=== PATIENT | female | born 1995 | race Caucasian/White ===

== ENCOUNTER 2016-04-11 22:09 | Outpatient (CLI) | payer MEDICAID ==
[~2016-04-11] VITALS: Ht 160 cm; Wt 87.5 kg
[2016-04-11 22:38] VITALS: Ht 160 cm; Wt 87.5 kg
[2016-04-11 22:39] VITALS: BP 116/61; PULSE 93; RESP 18
[2016-04-11] MEDS ORDERED: FERR325C PO (22:42)
[2016-04-11] MEDS ORDERED: PRENAT PO (22:42)
--- NOTE | 2016-04-11 23:41 | RADRPT ---
PROCEDURE: US OB biophysical profile. CLINICAL INDICATION: UCS TECHNIQUE: Multiple sonographic images of the pelvis were obtained. The images were reviewed on a PACS workstation. COMPARISON: No pertinent prior examinations were submitted for comparison. FINDINGS: There is a single viable intrauterine gestation. Cardiac activity is present with 141 beats per min [place]. There is a vertex presentation. The placenta is anterior. The placenta is grade II appearance. There is a normal amount of amniotic fluid with an AC = 8.2 cm. Biophysical profile: movement 2/2 tone 2/2. breathing 2/2 AC 2/2 Total 09/23 IMPRESSION: Normal biophysical profile. RPTAT: HIKT . .Elkin Owen MD, MD Date Time Electronically viewed and signed by .Elkin Owen MD, on 04/11/2016 23:41 .T/
--- NOTE | 2016-04-12 01:01 | TRIAGE ---
OB Triage Datetime Report Generated by CPN: 04/12/2016 01:00 Datetime: 04/12/2016 00:41 Stage of : OB Triage Monitor Mode: External Quality: Mild Pattern: Normal: <= 5 Contractions in 10 Minutes Resting Tone [place]: Relaxed Heart Rate FHR Baseline Rate: 130 Monitor Mode: External US Datetime: 04/12/2016 00:36 Membrane Status: Intact Datetime: 04/11/2016 23:35 Vaginal Exam Dilatation (cms): 0.0 Effacement (%): 0 Station: -3 Exam By: Marcelle BRIGHT Vaginal Bleeding: None Cervix, Consistency: Firm Cervix, Position: Posterior Presentation 'A': Cephalic Datetime: 04/11/2016 23:30 Stage of : OB Triage Datetime: 04/11/2016 23:26 Stage of : OB Triage Datetime: 04/11/2016 23:06 Stage of : OB Triage Datetime: 04/11/2016 22:29 Assessment Type: Triage Maternal Assessment Level of Consciousness: Fully Conscious DTR's/Clonus: DTRs 2+; No Clonus Headache: Denies Blurred Vision: No Respiratory Effort: Unlabored Breath Sounds, Left: Clear and Equal Breath Sounds, Right: Clear and Equal Nausea/Vomiting: Denies RUQ Epigastric Pain: Denies Lower Extremities Edema: None Degree: None Upper Extremities Edema: None Degree: None Facial Edema: None Fall Risk Assessment History of Falling: (0) No Secondary Diagnosis: (15) Yes (Annotations: ASTHMA) Ambulatory Aid: (0) Bedrest/Nurse Assist IV Therapy: (0) No Gait: (0) Normal/Bedrest/Immobile Mental Status: (0) Oriented to Own Ability Fall Score: 15 Fall Risk Score Definition: No Risk: No action required Datetime: 04/11/2016 22:23 Time of Arrival: 04/11/2016 22:07 EGA: 35.5 Arrived By: Ambulatory Arrived From: Home Chief Complaint: UCS X2 SINCE 1600 Movement: Present Contractions: Occasional Rupture of Membranes: Denies Vaginal Bleeding: None Vaginal Discharge: Denies Recent Sexual Intercouse: Denies Abdominal Trauma: Not Applicable Patient Complaints: Cramping; Back Pain Time Provider Notified: 04/11/2016 23:06 Provider Notified: FAZILAT Initial Plan: VS, EFM, PO HYDRATION, SVE, BPP Datetime: 04/11/2016 22:20 Stage of : OB Triage Monitor Mode: External Monitor Mode: External US Datetime: 02/08/2016 11:59 Labor Evaluation Frequency: 0 Monitor Mode: External Pattern: Normal: <= 5 Contractions in 10 Minutes Resting Tone [place]: Relaxed Heart Rate FHR Baseline Rate: 140 Monitor Mode: External US FHR Baseline Changes: No Baseline Change Variability: Moderate 6-25 bpm Accelerations: 15X15 Decelerations: None Category: Category I Pain Assessment Pain Scale: 0 Pain Presence: None/Denies Pain Type: N/A Pain Assessment Comments: PT REPORTS PAIN IS BETTER Datetime: 02/08/2016 10:54 Labor Evaluation Frequency: 0 Pattern: Normal: <= 5 Contractions in 10 Minutes Resting Tone [place]: Relaxed Heart Rate FHR Baseline Rate: 135 Monitor Mode: External US FHR Baseline Changes: No Baseline Change Variability: Moderate 6-25 bpm Accelerations: 15X15 Decelerations: None Category: Category I Pain Assessment Pain Scale: 2 Pain Presence: Intermittent Pain Type: Cramping Pain Location: Abdomen Pain Relief Measures: Comfort Measures Datetime: 02/08/2016 10:05 Assessment Type: Triage EGA: 26.5 Maternal Assessment Level of Consciousness: Fully Conscious DTR's/Clonus: DTRs 2+; No Clonus Headache: Denies Blurred Vision: No Respiratory Effort: Unlabored; Regular Rhythm Breath Sounds, Left: Clear and Equal Breath Sounds, Right: Clear and Equal Nausea/Vomiting: Denies RUQ Epigastric Pain: Denies Lower Extremities Edema: None Degree: None Upper Extremities Edema: None Degree: None Facial Edema: None Fall Risk Assessment History of Falling: (0) No Secondary Diagnosis: (0) No Ambulatory Aid: (0) Bedrest/Nurse Assist IV Therapy: (0) No Gait: (0) Normal/Bedrest/Immobile Mental Status: (0) Oriented to Own Ability Fall Score: 0 Fall Risk Score Definition: No Risk: No action required Datetime: 02/08/2016 10:04 Time of Arrival: 02/08/2016 09:50 Arrived By: Ambulatory Arrived From: Home Chief Complaint: PT PRESENTS TO TRIAGE COMPLAINING OF LOWER ABDOMINAL PAIN Movement: Present Contractions: Denies/Absent Rupture of Membranes: Denies Vaginal Bleeding: None Vaginal Discharge: Denies Recent Sexual Intercouse: Denies Abdominal Trauma: Not Applicable Patient Complaints: None Time Provider Notified: 02/08/2016 10:45 Provider Notified: [facility] Initial Plan: EFM/CVL/AC/EFW/UA Datetime: 02/08/2016 10:03 Pain Assessment Pain Scale: 2 Pain Presence: Intermittent Pain Type: Cramping Pain Location: Abdomen Pain Relief Measures: Comfort Measures
== END 2016-04-12 00:58 | disposition home or self-care (01) ==
LOC: OBT 22:09 → L-D 22:11 → OBT 04-12 00:58
PROVIDERS: ATTEND Obstetrics & Gynecology
DX: O62.9 Abnormality of forces of labor, unspecified (principal); Z3A.35 35 weeks gestation of pregnancy
CPT/HCPCS: 76818; Z7500; G0463

== ENCOUNTER 2016-04-24 12:20 | Outpatient (CLI) | payer SELFPAY ==
[~2016-04-24] VITALS: Ht 160 cm; Wt 82.3 kg
[~2016-04-24 12:20] MED LIST: FERR325C PO; PRENAT PO
[2016-04-24 12:34] VITALS: Ht 160 cm; Wt 82.3 kg
[2016-04-24 12:50] VITALS: BP 107/61; PULSE 107; RESP 18
--- NOTE | 2016-04-24 13:52 | RADRPT ---
PROCEDURE: OB ultrasound for biophysical profile CLINICAL INDICATION: Possible SROM. TECHNIQUE: Multiple sonographic images of the pelvis were obtained. Transabdominal view of the gr avid uterus are available for review. The images were reviewed on a PACS workstation. COMPARISON: 04/11/2016. FINDINGS: breathing movement = 2/2 tone = 2/2 motion = 2/2 Quantitative amniotic fluid volume = 2/2 AC = 6.6 cm Single live intrauterine with cardiac activity at 134 beats per minute. There is a anterior placenta without previa. IMPRESSION: 1. Single living intrauterine gestation in cephalic position. 2. Biophysical profile = 8/8. 3. AC = 6.6 cm. RPTAT: AACC Physician Zoraida Date Time Electronically viewed and signed by Physician Zoraida on 04/24/2016 13:52 /
--- NOTE | 2016-04-24 15:53 | TRIAGE ---
OB Triage Datetime Report Generated by CPN: 04/24/2016 15:53 Datetime: 04/24/2016 15:26 Labor Evaluation Frequency: occ Quality: Mild Pattern: Normal: <= 5 Contractions in 10 Minutes Resting Tone [place]: Relaxed Heart Rate FHR Baseline Rate: 125 FHR Baseline Changes: No Baseline Change Variability: Moderate 6-25 bpm Accelerations: 15X15 Decelerations: None Category: Category I Pain Presence: None/Denies Vaginal Exam Dilatation (cms): 0.0 Effacement (%): 50 Station: -2 Exam By: foroohar Vaginal Bleeding: None Cervix, Consistency: Moderate Cervix, Position: Posterior Presentation 'A': Cephalic Datetime: 04/24/2016 15:13 Labor Evaluation Frequency: occ Monitor Mode: External Quality: Mild Pattern: Normal: <= 5 Contractions in 10 Minutes Resting Tone [place]: Relaxed Heart Rate FHR Baseline Rate: 125 Monitor Mode: External US FHR Baseline Changes: No Baseline Change Variability: Moderate 6-25 bpm Accelerations: 15X15 Decelerations: None Category: Category I Datetime: 04/24/2016 14:45 Labor Evaluation Frequency: 2-8 Monitor Mode: External Duration (sec)2399: 40-70 Quality: Mild Pattern: Normal: <= 5 Contractions in 10 Minutes Resting Tone [place]: Relaxed Heart Rate FHR Baseline Rate: 135 Monitor Mode: External US FHR Baseline Changes: No Baseline Change Variability: Moderate 6-25 bpm Accelerations: 15X15 Decelerations: None Category: Category I Datetime: 04/24/2016 13:24 Labor Evaluation Frequency: irr Monitor Mode: External Duration (sec)2399: 30 Quality: Mild Pattern: Normal: <= 5 Contractions in 10 Minutes Resting Tone [place]: Relaxed Heart Rate FHR Baseline Rate: 130 Monitor Mode: External US FHR Baseline Changes: No Baseline Change Variability: Moderate 6-25 bpm Accelerations: 15X15 Decelerations: None Category: Category I Membrane Status: Intact Datetime: 04/24/2016 13:04 Stage of : OB Triage Station: -2 Exam By: eileen [facility] Vaginal Bleeding: None Cervix, Consistency: Soft Cervix, Position: Posterior Presentation 'A': Cephalic Datetime: 04/24/2016 12:51 Stage of : OB Triage Maternal Assessment Level of Consciousness: Fully Conscious DTR's/Clonus: DTRs 2+; No Clonus Headache: Denies Blurred Vision: No Respiratory Effort: Unlabored; Regular Rhythm; Equal Expansion Breath Sounds, Left: Clear and Equal Breath Sounds, Right: Clear and Equal Nausea/Vomiting: Denies RUQ Epigastric Pain: Denies Lower Extremities Edema: None Degree: None Upper Extremities Edema: None Degree: None Facial Edema: None Temperature Route: Axillary Fall Risk Assessment History of Falling: (0) No Secondary Diagnosis: (0) No Ambulatory Aid: (0) Bedrest/Nurse Assist IV Therapy: (0) No Gait: (0) Normal/Bedrest/Immobile Mental Status: (0) Oriented to Own Ability Fall Score: 0 Fall Risk Score Definition: No Risk: No action required Monitor Mode: External Heart Rate FHR Baseline Rate: 135 (Annotations: initial) Monitor Mode: External US Pain Assessment Pain Scale: 0 Pain Presence: None/Denies Datetime: 04/24/2016 12:38 Time of Arrival: 04/24/2016 12:38 EGA: 37.4 Arrived By: Ambulatory Arrived From: Home Chief Complaint: leaking of fluid, possible rom Movement: Present Contractions: Occasional Time Contractions Began: 04/24/2016 09:00 Contractions: 10 Rupture of Membranes: Unsure Vaginal Bleeding: None Vaginal Discharge: Denies Recent Sexual Intercouse: Denies Abdominal Trauma: Not Applicable Patient Complaints: Other Time Provider Notified: 04/24/2016 13:04 Provider Notified: Dr gold Initial Plan: efm/ bpp Datetime: 04/12/2016 00:52 Stage of : OB Triage Monitor Mode: External Quality: Mild Pattern: Normal: <= 5 Contractions in 10 Minutes Resting Tone [place]: Relaxed Heart Rate FHR Baseline Rate: 130 Monitor Mode: External US FHR Baseline Changes: No Baseline Change Variability: Moderate 6-25 bpm Accelerations: 15X15 Decelerations: None Category: Category I Pain Assessment Pain Scale: 0 Pain Presence: None/Denies Pain Type: N/A Datetime: 04/11/2016 22:29 Fall Score: 15 Fall Risk Score Definition: No Risk: No action required Datetime: 04/11/2016 22:23 EGA: 35.5 Datetime: 02/08/2016 10:05 EGA: 26.5 Fall Score: 0 Fall Risk Score Definition: No Risk: No action required
== END 2016-04-24 15:48 | disposition home or self-care (01) ==
LOC: OBT 12:20 → L-D 12:20 → OBT 15:48
PROVIDERS: ATTEND Obstetrics & Gynecology
DX: O47.1 False labor at or after 37 completed weeks of gestation (principal); Z3A.37 37 weeks gestation of pregnancy
CPT/HCPCS: 76818; 84112; G0463

== ENCOUNTER 2016-04-25 10:08 | Outpatient (CLI) | payer MEDICAID ==
--- NOTE | 2016-04-24 15:57 | CONS ---
Date/Time of Note Date/Time of Note DATE: 04/24/16 TIME: 15:50 Consultation Date/Type/Reason Admit Date/Time April 24, 2016 OB triage consultation Reason for Consultation To rule out rupture of amniotic fluid 24 HR Interval Summary Free Text/Dictation This patient is a 20 years old 2 para 0 1 with EDC of April which makes her 37 weeks and 1 day Was sent to the OB triage area due to possible spontaneous rupture of membranes On examination she is a well-developed well-nourished lady near term in no distress . No pain her blood pressure is 107/61 pulse 107 respiration 18 temperature 90 7.. Physical examination is basically negative. Pelvic examination cervix is closed and long.. Nitrazine test is negative , ROM plus was reported negative. On pelvic examination the cervix was closed and long head was high. No evidence of rupture membranes. On ultrasound study biophysical profile 8 out of 8 liver AC is 6.6 cm and the rest of examination were basically within normal Current Medications Medications (Trade) Dose Ordered Sig/Ford Route PRN Reason Start Time Stop Time Status Last Admin Dose Admin Lactated Ringer's (Lr) 500 ml @ 500 mls/hr Q1H ONCE IV 04/25/16 12:00 04/25/16 12:37 DC 04/25/16 12:06 Detailed Summary Eyes: No discharge, No no complaints, No other, No pain, No redness, No visual change ENT: No bleeding, No congestion, No discharge, No dysphagia, No no complaints, No other, No pain, No sore throat Respiratory: No cough, No no complaints, No other, No pain, No pleuritic pain, No shortness of breath, No sputum, No wheezing Cardiovascular: No chest pain, No edema, No lightheadedness, No no complaints, No orthopenea, No other, No palpitations, No paroxysmal nocturnal dyspnea Gastrointestinal: other (No evidence of leaking amniotic fluid), No blood, No constipation, No decreased appetite, No diarrhea, No flatus, No nausea, No no complaints, No pain, No passing stool, No vomiting Genitourinary: No bleeding, No discharge, No dysuria, No flank pain, No hematuria, No no complaints, No other Musculoskeletal: No back pain, No bone/joint pain, No neck pain, No no complaints, No other, No restricted range of motion, No swelling Skin: No bruising, No erythema, No laceration, No no complaints, No other, No pruritis, No rash, No skin lesions Neurologic: No confusion, No dizziness, No focal-weakness, No headache, No no complaints, No other, No seizure, No syncope Endocrine: No dry skin, No no complaints, No other, No polydypsia, No polyuria , No temp intolerance Lymphatic: No adenopathy, No lymphadema, No no complaints, No other, No tender nodes Psychological: No anxiety, No confusion, No depression, No nl mood/affect, No no complaints, No other, No suicidal Immunologic: No immunodeficiency, No no complaints, No other, No pruritis, No rhinitis, No urticaria JES IRELAND MD Apr 24, 2016 15:57
[~2016-04-25] VITALS: Ht 160 cm; Wt 82.1 kg
[2016-04-25 10:13] VITALS: Ht 160 cm; Wt 82.1 kg
[2016-04-25 10:24] VITALS: BP 115/59; PULSE 87; RESP 18
--- NOTE | 2016-04-25 11:31 | RADRPT ---
PROCEDURE: OB ultrasound for biophysical profile CLINICAL INDICATION: Low AC TECHNIQUE: Multiple sonographic images of the pelvis were obtained. Transabdominal views of the g ravid uterus are available for review. The images were reviewed on a PACS workstation. COMPARISON: None FINDINGS: breathing movement = 2/2 tone = 2/2 motion = 2/2 AC = 2/2 AC = 9.6 cm Single live intrauterine with cardiac activity of 125 bpm. position is cephal ic. The placenta is anterior. IMPRESSION: 1. Single live intrauterine gestation. 2. Biophysical profile = 8/8. 3. AC = 9.6 cm. RPTAT: HH .Vickie Wing MD, MD Date Time Electronically viewed and signed by .Vickie Wing MD, on 04/25/2016 11:30 .G/
[2016-04-25] MEDS ORDERED: LACTATED RINGER'S 500 ML IV ONE (12:00)
--- NOTE | 2016-04-25 12:45 | TRIAGE ---
OB Triage Datetime Report Generated by CPN: 04/25/2016 12:45 Datetime: 04/25/2016 12:10 Frequency: OCCAS Monitor Mode: External Duration (sec)2399: 50-120 Quality: Mild Pattern: Normal: <= 5 Contractions in 10 Minutes Resting Tone [place]: Relaxed FHR Baseline Rate: 130 Monitor Mode: External US FHR Baseline Changes: No Baseline Change Variability: Moderate 6-25 bpm Accelerations: 15X15 Decelerations: None Category: Category I Datetime: 04/25/2016 11:40 Time of Arrival: 04/25/2016 10:05 EGA: 37.5 Arrived By: Ambulatory Arrived From: Home Chief Complaint: LOW AC Movement: Present Contractions: Denies/Absent Rupture of Membranes: Denies Vaginal Bleeding: Clots Vaginal Discharge: Denies Recent Sexual Intercouse: Denies Abdominal Trauma: Not Applicable Patient Complaints: Other Time Provider Notified: 04/25/2016 11:45 Provider Notified: DR MARCELINO Initial Plan: NST, BPP WITH AC Datetime: 04/25/2016 11:11 Frequency: OCCAS Monitor Mode: External Duration (sec)2399: 50-60 Quality: Mild Pattern: Normal: <= 5 Contractions in 10 Minutes Resting Tone [place]: Relaxed FHR Baseline Rate: 135 Monitor Mode: External US Variability: Moderate 6-25 bpm Accelerations: 15X15 Decelerations: None Category: Category I Datetime: 04/25/2016 10:41 Assessment Type: Admission Assessment Level of Consciousness: Fully Conscious DTR's/Clonus: DTRs 2+; No Clonus Headache: Denies Blurred Vision: No Respiratory Effort: Unlabored; Regular Rhythm; Equal Expansion Breath Sounds, Left: Clear and Equal Breath Sounds, Right: Clear and Equal Nausea/Vomiting: Denies RUQ Epigastric Pain: Denies Lower Extremities Edema: None Degree: None Upper Extremities Edema: None Degree: None Facial Edema: None History of Falling: (0) No Secondary Diagnosis: (0) No Ambulatory Aid: (0) Bedrest/Nurse Assist IV Therapy: (0) No Gait: (0) Normal/Bedrest/Immobile Mental Status: (0) Oriented to Own Ability Fall Score: 0 Fall Risk Score Definition: No Risk: No action required Datetime: 04/24/2016 12:51 Fall Score: 0 Fall Risk Score Definition: No Risk: No action required Datetime: 04/24/2016 12:38 EGA: 37.4
== END 2016-04-25 12:37 | disposition home or self-care (01) ==
LOC: OBT 10:08 → L-D 10:09 → OBT 12:37
PROVIDERS: ATTEND Obstetrics & Gynecology
DX: O26.893 Other specified pregnancy related conditions, third trimester (principal); O41.03X0 Oligohydramnios, third trimester, not applicable or unspecified; Z3A.37 37 weeks gestation of pregnancy
CPT/HCPCS: 76818; 96360; G0463; J7120

== ENCOUNTER 2016-04-27 18:09 | Outpatient (CLI) | payer MEDICAID ==
[~2016-04-27] VITALS: Ht 157.5 cm; Wt 83.0 kg
[2016-04-27 18:20] VITALS: Ht 157.5 cm; Wt 83.0 kg
[2016-04-27 18:21] VITALS: BP 119/67; PULSE 78; RESP 20
--- NOTE | 2016-04-27 19:05 | RADRPT ---
PROCEDURE: US OB biophysical profile. CLINICAL INDICATION: decreased movements, low AC TECHNIQUE: Multiple sonographic images of the pelvis were obtained. The images were reviewed on a PACS workstation. COMPARISON: 04/25/2016 FINDINGS: There is a single viable intrauterine gestation. Cardiac activity is present with 125 beats per min [place]. There is a vertex presentation. The placenta is anterior. There is no evidence of placental abruption. There is a decreased amount of amniotic fluid with an AC = 6.5 cm. Biophysical profile: movement 2/2 tone 2/2. breathing 2/2 AC 2/2 Total 09/23 RPTAT: AA . IMPRESSION: Normal biophysical profile. Mild oligohydramnios. . .Logan Dempsey MD, Date Time Electronically viewed and signed by .Logan Dempsey MD, on 04/27/2016 19:05 .S/
--- NOTE | 2016-04-27 19:56 | QN ---
Documentation Comment Laborist Ace Mark/Dr Gunter 20 y.o. A1 with an IUP at 38 weeks here for follow-up for a low AC. Pt came in 04/24 for c/o leaking and had an AC b/w 6 and 7. A follow-up AC on 04/25 was 9.6. She had a ROM-PLUS on 04/25 that was negative. She reports good movement.No bleeding. PMHx: none. PSHx: D and C x 1 for a TAB. NKDA. BP 119/67. T= 97.9. NST: baseline 120-130 bpm with accels to 140-150 bpm. No decels. Occasional UC' s. Nitrazine negative. CX: 60/FT/-3/posterior. BPP 09/23. AC 6.5cm. A: IUP at 38 weeks. Low normal AC. P: Return for recheck 04/29 or. Reviewed labor precautions with pt. TOMASZ POWERS MD Apr 27, 2016 19:55
--- NOTE | 2016-04-27 20:08 | TRIAGE ---
OB Triage Datetime Report Generated by CPN: 04/27/2016 20:08 Datetime: 04/27/2016 19:42 Stage of : OB Triage Labor Evaluation Frequency: Irregular Monitor Mode: External Duration (sec)2399: 40-70 Quality: Mild Pattern: Normal: <= 5 Contractions in 10 Minutes Resting Tone [place]: Relaxed Heart Rate FHR Baseline Rate: 125 Monitor Mode: External US Variability: Moderate 6-25 bpm Accelerations: 15X15 Decelerations: None Category: Category I Datetime: 04/27/2016 19:30 Vaginal Exam Dilatation (cms): 2.0 Effacement (%): 60 Station: -3 Exam By: BETHANY Kelly Membrane Status: Intact Vaginal Bleeding: None Nitrazine: Negative Cervix, Consistency: Firm Cervix, Position: Posterior Presentation 'A': Cephalic Datetime: 04/27/2016 19:20 Assessment Type: Triage Maternal Assessment Level of Consciousness: Fully Conscious Headache: Denies Respiratory Effort: Unlabored; Regular Rhythm Nausea/Vomiting: Denies RUQ Epigastric Pain: Denies Lower Extremities Edema: Bilateral Lower Extremities Degree: TRACE Upper Extremities Edema: None Facial Edema: None Fall Risk Assessment History of Falling: (0) No Secondary Diagnosis: (0) No Ambulatory Aid: (0) Bedrest/Nurse Assist IV Therapy: (0) No Gait: (0) Normal/Bedrest/Immobile Mental Status: (0) Oriented to Own Ability Fall Score: 0 Fall Risk Score Definition: No Risk: No action required Datetime: 04/27/2016 18:26 Time of Arrival: 04/27/2016 18:05 EGA: 38.0 Arrived By: Ambulatory Arrived From: Home Chief Complaint: here for f/u low henrique Movement: Present Contractions: Denies/Absent Rupture of Membranes: Denies Vaginal Bleeding: None Vaginal Discharge: Denies Recent Sexual Intercouse: Denies Abdominal Trauma: Not Applicable Patient Complaints: Other Time Provider Notified: 04/27/2016 19:41 Provider Notified: REICHE Initial Plan: efm,nst, bpp Pain Assessment Pain Scale: 3 Pain Presence: Intermittent Pain Type: Cramping Pain Location: Abdomen Pain Goal: 4 Datetime: 04/27/2016 18:25 Maternal Assessment Level of Consciousness: Fully Conscious DTR's/Clonus: DTRs 2+ Headache: Denies Blurred Vision: No Nausea/Vomiting: Denies RUQ Epigastric Pain: Denies Facial Edema: None Labor Evaluation Frequency: irreg Monitor Mode: External Duration (sec)2399: 60 Quality: Mild Pattern: Normal: <= 5 Contractions in 10 Minutes Resting Tone [place]: Relaxed Heart Rate FHR Baseline Rate: 130 Monitor Mode: External US FHR Baseline Changes: No Baseline Change Variability: Moderate 6-25 bpm Accelerations: 15X15 Decelerations: None Category: Category I Pain Assessment Pain Scale: 0 Pain Presence: Intermittent Pain Type: Cramping Pain Location: Abdomen Pain Goal: 4 Membrane Status: Intact Datetime: 04/27/2016 18:16 Maternal Assessment Level of Consciousness: Fully Conscious DTR's/Clonus: DTRs 2+; No Clonus Headache: Denies Blurred Vision: No Respiratory Effort: Unlabored; Regular Rhythm; Equal Expansion Breath Sounds, Left: Clear and Equal Breath Sounds, Right: Clear and Equal Nausea/Vomiting: Denies RUQ Epigastric Pain: Denies Facial Edema: None Temperature Route: Axillary Fall Risk Assessment History of Falling: (0) No Secondary Diagnosis: (0) No Ambulatory Aid: (0) Bedrest/Nurse Assist IV Therapy: (0) No Gait: (0) Normal/Bedrest/Immobile Mental Status: (0) Oriented to Own Ability Fall Score: 0 Fall Risk Score Definition: No Risk: No action required Datetime: 04/25/2016 12:45 Arrived By: Ambulatory Arrived From: Home Movement: Present Rupture of Membranes: Denies Vaginal Bleeding: None Vaginal Discharge: Denies Recent Sexual Intercouse: Denies Abdominal Trauma: Not Applicable Patient Complaints: None; Other Datetime: 04/25/2016 11:40 EGA: 37.5 Datetime: 04/25/2016 10:41 Fall Score: 0 Fall Risk Score Definition: No Risk: No action required Datetime: 04/24/2016 12:51 Fall Score: 0 Fall Risk Score Definition: No Risk: No action required Datetime: 04/24/2016 12:38 EGA: 37.4 Datetime: 04/11/2016 22:29 Fall Score: 15 Fall Risk Score Definition: No Risk: No action required Datetime: 04/11/2016 22:23 EGA: 35.5 Datetime: 02/08/2016 10:05 EGA: 26.5 Fall Score: 0 Fall Risk Score Definition: No Risk: No action required
== END 2016-04-27 19:52 | disposition home or self-care (01) ==
LOC: OBT 18:09 → L-D 18:11 → OBT 19:52
PROVIDERS: ATTEND Obstetrics & Gynecology
DX: O47.1 False labor at or after 37 completed weeks of gestation (principal); Z3A.38 38 weeks gestation of pregnancy
CPT/HCPCS: 76818; Z7500; G0463

== ENCOUNTER 2016-04-29 12:15 | Outpatient (CLI) | payer MEDICAID ==
[~2016-04-29] VITALS: Ht 157.5 cm; Wt 82.3 kg
[2016-04-29 12:16] VITALS: Ht 157.5 cm; Wt 82.3 kg
--- NOTE | 2016-04-29 15:04 | QN ---
Documentation Comment 38+wks GA with Low AC,+FM NO VB Irregular CTXs NST reassuring [place] Irregular CTXs --->observation --->IV hydration --->EFW --->RoM + MICHELE JORDAN M.D. Apr 29, 2016 15:04
--- NOTE | 2016-04-29 16:30 | RADRPT ---
PROCEDURE: Obstetrical ultrasound. CLINICAL INDICATION: , evaluation. Pelvic pain. Oligohydramnios TECHNIQUE: Transabdominal sonographic images of the pelvis are obtained. COMPARISON: OB ultrasound 04/27/2016 FINDINGS: Single intrauterine gestation. There is a cephalic presentation. Measurements were made in order to determine age. The results are as follows: BPD = 9.33 cm HC = 33.81 cm AC = 34.20 cm FL = 7.47 cm AC = not measured Heart rate = 130 beats per minute The placenta is anterior. There is no evidence for an abruption or placenta previa. Ovaries are not visualized. IMPRESSION: Single intrauterine gestation of approximately 38 weeks 2 days by ultrasound criteria. Estimated weight = 3425 g; 62 percentile for estimated ultrasound age. RPTAT: AADD .Vance Pena MD, Date Time Electronically viewed and signed by .Vance Pena MD, on 04/29/2016 16:30 .B/
--- NOTE | 2016-04-29 16:41 | RADRPT ---
PROCEDURE: US OB biophysical profile. CLINICAL INDICATION: Oligohydramnios. TECHNIQUE: Multiple sonographic images of the pelvis were obtained. The images were reviewed on a PACS workstation. COMPARISON: OB sonogram 04/27/2016. FINDINGS: Cardiac activity is present with 131 beats per minute. There is a cephalic presentation. The placenta is anterior grade II. Amniotic fluid index: 7.4 cm (normal) Biophysical profile: movement 2/2 tone 2/2. breathing 2/2 AC 2/2 Total 09/23 IMPRESSION: 1. Normal amniotic fluid volume. 2. Normal biophysical. RPTAT:AAJJ . Physician Gricel Date Time Electronically viewed and signed by Physician Gricel on 04/29/2016 16:40 /
[2016-04-29] MEDS ORDERED: LACTATED RINGER'S 1,000 ML IV SCH (17:30)
--- NOTE | 2016-04-29 18:16 | TRIAGE ---
OB Triage Datetime Report Generated by CPN: 04/29/2016 18:15 Datetime: 04/29/2016 17:24 Dilatation (cms): 1.5 Effacement (%): 50 Station: -3 Exam By: JUNE Vaginal Bleeding: Normal Show Cervix, Consistency: Soft Cervix, Position: Posterior Datetime: 04/29/2016 16:30 Stage of : OB Triage Datetime: 04/29/2016 15:15 Pool: Negative Datetime: 04/29/2016 12:36 Stage of : OB Triage Assessment Type: Triage Level of Consciousness: Fully Conscious DTR's/Clonus: DTRs 2+; No Clonus Headache: Denies Blurred Vision: No Respiratory Effort: Unlabored; Regular Rhythm; Equal Expansion Breath Sounds, Left: Clear and Equal Breath Sounds, Right: Clear and Equal Nausea/Vomiting: Denies RUQ Epigastric Pain: Denies Lower Extremities Edema: Bilateral Lower Extremities Degree: 1+ Upper Extremities Edema: None Degree: None Facial Edema: None Temperature Route: Axillary History of Falling: (0) No Secondary Diagnosis: (0) No Ambulatory Aid: (0) Bedrest/Nurse Assist IV Therapy: (0) No Gait: (0) Normal/Bedrest/Immobile Mental Status: (0) Oriented to Own Ability Fall Score: 0 Fall Risk Score Definition: No Risk: No action required Datetime: 04/29/2016 12:20 Time of Arrival: 04/29/2016 12:08 EGA: 38.2 Arrived By: Ambulatory Arrived From: Home Chief Complaint: FOLLOW UP AC Movement: Present Contractions: Denies/Absent Rupture of Membranes: Denies Vaginal Bleeding: None Vaginal Discharge: Denies Recent Sexual Intercouse: Denies Abdominal Trauma: Not Applicable Time Provider Notified: 04/29/2016 12:50 Provider Notified: DR. MARCELINO Initial Plan: hayley,edt, bpp
== END 2016-04-29 19:05 | disposition home or self-care (01) ==
LOC: L-D 12:15 → OBT 12:15
PROVIDERS: ATTEND Obstetrics & Gynecology
DX: O41.03X0 Oligohydramnios, third trimester, not applicable or unspecified (principal); Z3A.38 38 weeks gestation of pregnancy
CPT/HCPCS: 76815; 76818; 84112; J7120; Z7500; G0463

== ENCOUNTER 2016-04-30 18:53 | Outpatient (CLI) | payer MEDICAID ==
[~2016-04-30] VITALS: Ht 157.5 cm; Wt 83.3 kg
[2016-04-30 18:56] VITALS: BP 121/68; PULSE 100; RESP 19; Ht 157.5 cm; Wt 83.3 kg
--- NOTE | 2016-04-30 19:41 | RADRPT ---
PROCEDURE: OB ultrasound for biophysical profile CLINICAL INDICATION: Biophysical profile. . TECHNIQUE: Multiple sonographic images of the pelvis were obtained. Transabdominal view of the gr avid uterus are available for review. The images were reviewed on a PACS workstation. COMPARISON: 04/29/2016 FINDINGS: Single intrauterine gestation. Presentation: Cephalic. Partially visualized placenta: Anterior. breathing movement = 2/2 tone = 2/2 motion = 2/2 AC = 2/2 AC = 8.9 cm heart rate: 133 beats per minute IMPRESSION: Single intrauterine gestation. Biophysical profile / AC of 8.9 cm, previously 7.4 cm RPTAT: AADD .Vance Pena MD, MD Date Time Electronically viewed and signed by .Vance Pena MD, on 04/30/2016 19:41 .B/
--- NOTE | 2016-04-30 20:25 | TRIAGE ---
OB Triage Datetime Report Generated by CPN: 04/30/2016 20:25 Datetime: 04/30/2016 20:00 Stage of : OB Triage Labor Evaluation Frequency: 6-15min Monitor Mode: External Duration (sec)2399: 60-120sec Quality: Mild Pattern: Normal: <= 5 Contractions in 10 Minutes Resting Tone [place]: Relaxed Heart Rate FHR Baseline Rate: 130 Monitor Mode: External US FHR Baseline Changes: No Baseline Change Variability: Moderate 6-25 bpm Accelerations: 15X15 Decelerations: None Category: Category I Pain Assessment Pain Scale: 0 Pain Presence: None/Denies Pain Type: N/A Datetime: 04/30/2016 19:38 Monitor Mode: External Monitor Mode: External US Datetime: 04/30/2016 19:25 Stage of : OB Triage Monitor Mode: External Quality: Mild Pattern: Normal: <= 5 Contractions in 10 Minutes Resting Tone [place]: Relaxed Heart Rate FHR Baseline Rate: 130 Monitor Mode: External US Pain Assessment Pain Scale: 0 Pain Presence: None/Denies Pain Type: N/A Datetime: 04/30/2016 18:54 Assessment Type: Triage Maternal Assessment Level of Consciousness: Fully Conscious DTR's/Clonus: DTRs 2+; No Clonus Headache: Denies Blurred Vision: No Respiratory Effort: Unlabored; Regular Rhythm; Equal Expansion Breath Sounds, Left: Clear and Equal Breath Sounds, Right: Clear and Equal Nausea/Vomiting: Denies RUQ Epigastric Pain: Denies Lower Extremities Edema: None Degree: None Upper Extremities Edema: None Degree: None Facial Edema: None Fall Risk Assessment History of Falling: (0) No Secondary Diagnosis: (0) No Ambulatory Aid: (0) Bedrest/Nurse Assist IV Therapy: (0) No Gait: (0) Normal/Bedrest/Immobile Mental Status: (0) Oriented to Own Ability Fall Score: 0 Fall Risk Score Definition: No Risk: No action required Datetime: 04/30/2016 18:53 Time of Arrival: 04/30/2016 18:53 EGA: 38.3 Arrived By: Ambulatory Arrived From: Home Chief Complaint: NST AND BPP FOR LOW AC follow up order from yesterday Movement: Present Contractions: Denies/Absent Rupture of Membranes: Denies Vaginal Discharge: Denies Recent Sexual Intercouse: Denies Abdominal Trauma: Not Applicable Additional Patient Complaints: none Time Provider Notified: 04/30/2016 20:00 Provider Notified: Dr Horton Initial Plan: NST BPP Datetime: 04/29/2016 18:13 Labor Evaluation Frequency: IRREG Monitor Mode: External Duration (sec)2399: 50-90 Quality: Mild Pattern: Normal: <= 5 Contractions in 10 Minutes Resting Tone [place]: Relaxed Heart Rate FHR Baseline Rate: 125 Monitor Mode: External US Variability: Moderate 6-25 bpm Accelerations: 15X15 Decelerations: None Category: Category I Datetime: 04/29/2016 17:10 Labor Evaluation Frequency: IRREG Monitor Mode: External Duration (sec)2399: 40-60 Quality: Moderate Pattern: Normal: <= 5 Contractions in 10 Minutes Resting Tone [place]: Relaxed Heart Rate FHR Baseline Rate: 135 Monitor Mode: External US Variability: Moderate 6-25 bpm Accelerations: 15X15 Decelerations: None Category: Category I Datetime: 04/29/2016 16:01 Labor Evaluation Frequency: IREG Monitor Mode: External Duration (sec)2399: 30-60 Quality: Mild Pattern: Normal: <= 5 Contractions in 10 Minutes Resting Tone [place]: Relaxed Heart Rate FHR Baseline Rate: 135 Monitor Mode: External US Variability: Moderate 6-25 bpm Accelerations: 15X15 Decelerations: None Category: Category I Datetime: 04/29/2016 14:54 Labor Evaluation Frequency: IRREG Monitor Mode: External Duration (sec)2399: 60-120 Quality: Mild Pattern: Normal: <= 5 Contractions in 10 Minutes Resting Tone [place]: Relaxed Heart Rate FHR Baseline Rate: 135 Monitor Mode: External US Variability: Moderate 6-25 bpm Accelerations: 15X15 Decelerations: None Category: Category I Datetime: 04/29/2016 14:00 Labor Evaluation Frequency: IRREG Monitor Mode: External Duration (sec)2399: 60-120 Quality: Mild Pattern: Normal: <= 5 Contractions in 10 Minutes Resting Tone [place]: Relaxed Heart Rate FHR Baseline Rate: 135 Monitor Mode: External US Variability: Moderate 6-25 bpm Accelerations: 15X15 Decelerations: None Datetime: 04/29/2016 13:00 Labor Evaluation Frequency: IRREG Monitor Mode: External Duration (sec)2399: 50-90 Quality: Mild Pattern: Normal: <= 5 Contractions in 10 Minutes Resting Tone [place]: Relaxed Heart Rate FHR Baseline Rate: 125 Monitor Mode: External US Variability: Moderate 6-25 bpm Accelerations: 15X15 Decelerations: None Datetime: 04/29/2016 12:36 Fall Score: 0 Fall Risk Score Definition: No Risk: No action required Datetime: 04/29/2016 12:20 EGA: 38.2 Datetime: 04/27/2016 19:20 Fall Score: 0 Fall Risk Score Definition: No Risk: No action required Datetime: 04/27/2016 18:26 EGA: 38.0 Datetime: 04/27/2016 18:16 Fall Score: 0 Fall Risk Score Definition: No Risk: No action required Datetime: 04/25/2016 11:40 EGA: 37.5 Datetime: 04/25/2016 10:41 Fall Score: 0 Fall Risk Score Definition: No Risk: No action required Datetime: 04/24/2016 12:51 Fall Score: 0 Fall Risk Score Definition: No Risk: No action required Datetime: 04/24/2016 12:38 EGA: 37.4 Datetime: 04/11/2016 22:29 Fall Score: 15 Fall Risk Score Definition: No Risk: No action required Datetime: 04/11/2016 22:23 EGA: 35.5 Datetime: 02/08/2016 10:05 EGA: 26.5 Fall Score: 0 Fall Risk Score Definition: No Risk: No action required
--- NOTE | 2016-04-30 22:08 | QN ---
Documentation Comment 20-year-old with IUP at 38 weeks and 3 days here today was sent to triage for taking AC. She was noted to have low AC 6.5 on April 27 and improved to 7.4 on April 29. She denies any leaking of fluid, uterine contractions or decreased movement. Her was uncomplicated. She has no complaints today. She has had care with Dr. Gunter Physical examination: General appearance: Alert and oriented, is not in any acute distress abdomen: Soft, gravid, nontender, no rebound tenderness no guarding no rigidity Fundal height consistent with gestational age NST: Category 1 No contractions seen on the monitor Extremities: No calf tenderness, no click no edema PROCEDURE: OB ultrasound for biophysical profile CLINICAL INDICATION: Biophysical profile. . TECHNIQUE: Multiple sonographic images of the pelvis were obtained. Transabdominal view of the gravid uterus are available for review. The images were reviewed on a PACS workstation. COMPARISON: 04/29/2016 FINDINGS: Single intrauterine gestation. Presentation: Cephalic. Partially visualized placenta: Anterior. breathing movement = 2/2 tone = 2/2 motion = 2/2 AC = 2/2 AC = 8.9 cm heart rate: 133 beats per minute IMPRESSION: Single intrauterine gestation. Biophysical profile 8/8 AC of 8.9 cm, previously 7.4 cm Assessment: IUP at 38 weeks and 3 days History of borderline low AC, 6.9. Current AC 8.9 within normal limits No evidence of labor PROM Patient has a follow-up with Dr. Gunter tomorrow Strict labor precaution and kick counts was given to the patient RT triage if she has any complaint including decreased movement, leaking of fluid, vaginal bleeding or any other concerns. Patient verbalized understanding. TRISTEN ORTIZ MD Apr 30, 2016 22:08
== END 2016-04-30 20:23 | disposition home or self-care (01) ==
LOC: L-D 18:53 → OBT 18:53
PROVIDERS: ATTEND Obstetrics & Gynecology
DX: O60.03 Preterm labor without delivery, third trimester (principal); Z3A.38 38 weeks gestation of pregnancy
CPT/HCPCS: 76818; Z7500; G0463

== ENCOUNTER 2016-05-02 10:42 | Outpatient (CLI) | END 2016-05-02 13:50 | disposition home or self-care (01) | DX: O36.8130 Decreased fetal movements, third trimester, not applicable or unspecified (principal); Z3A.38 38 weeks gestation of pregnancy | CPT/HCPCS: 36415; 76818; 96360; J7120; Z7500 ==

== ENCOUNTER 2016-05-03 13:56 | Outpatient (CLI) | payer MEDICAID ==
--- NOTE | 2016-05-02 14:01 | QN ---
Documentation Comment @38+5 wks GA for repeat AC.Today 7.5 that No VB +FM No VB No LOF NST reassuring [place] Irregular CTXs Pelvic L/C/P --->will return tomorrow for another NST/BPP --->precautions discussed with patient --->patient's questions answered MICHELE JORDAN M.D. May 02, 2016 14:01
[~2016-05-03] VITALS: Ht 157.5 cm; Wt 84.7 kg
[2016-05-03 14:11] VITALS: BP 116/60; PULSE 80; RESP 18; Ht 157.5 cm; Wt 84.7 kg
--- NOTE | 2016-05-03 14:51 | RADRPT ---
PROCEDURE: OB ultrasound for biophysical profile CLINICAL INDICATION: Low AC TECHNIQUE: Multiple sonographic images of the pelvis were obtained. Transabdominal views of the g ravid uterus are available for review. The images were reviewed on a PACS workstation. COMPARISON: None FINDINGS: breathing movement = 2/2 tone = 2/2 motion = 2/2 AC = 2/2 AC = 9.1 cm Single live intrauterine with cardiac activity of 137 bpm. position is cephal ic. The placenta is anterior. IMPRESSION: 1. Single live intrauterine gestation. 2. Biophysical profile = 8/8. 3. AC = 9.1 cm. RPTAT: HH .Vickie Wing MD, MD Date Time Electronically viewed and signed by .Vickie Wing MD, on 05/03/2016 14:50 .G/
--- NOTE | 2016-05-03 16:15 | QN ---
Documentation Comment [facility]/Dr Gunter 20 y.o. A1 with an IUP at 38w 6d here for f/u on prior AC's all in the 7 range. No VB. No leaking. PMHx: none. PSHx: none. NKDA. BP= 116/60 T= 98.0 NST: baseline 130 bpm with accels to 150 bpm. No decels. Occasional UC's. BPP 8/8. AC 9.1 cm A: IUP at 38w 6 d. Normal AC. P: F/U at her clinic as scheduled 05/08/16. D/C home. TOMASZ POWERS MD May 03, 2016 16:15
--- NOTE | 2016-05-03 16:28 | TRIAGE ---
OB Triage Datetime Report Generated by CPN: 05/03/2016 16:28 Datetime: 05/03/2016 15:24 Frequency: IRREGULAR Monitor Mode: External Duration (sec)2399: 60-120 Quality: Mild Pattern: Normal: <= 5 Contractions in 10 Minutes Resting Tone [place]: Relaxed FHR Baseline Rate: 130 Monitor Mode: External US FHR Baseline Changes: No Baseline Change Variability: Moderate 6-25 bpm Accelerations: 15X15 Decelerations: None Category: Category I Datetime: 05/03/2016 14:15 Assessment Type: Admission Assessment Level of Consciousness: Fully Conscious DTR's/Clonus: DTRs 2+; No Clonus Headache: Denies Blurred Vision: No Respiratory Effort: Unlabored; Regular Rhythm; Equal Expansion Breath Sounds, Left: Clear and Equal Breath Sounds, Right: Clear and Equal Nausea/Vomiting: Denies RUQ Epigastric Pain: Denies Lower Extremities Edema: None Degree: None Upper Extremities Edema: None Degree: None Facial Edema: None History of Falling: (0) No Secondary Diagnosis: (0) No Ambulatory Aid: (0) Bedrest/Nurse Assist IV Therapy: (0) No Gait: (0) Normal/Bedrest/Immobile Mental Status: (0) Oriented to Own Ability Fall Score: 0 Fall Risk Score Definition: No Risk: No action required Frequency: IRREGULAR Monitor Mode: External Duration (sec)2399: 50-70 Quality: Mild Pattern: Normal: <= 5 Contractions in 10 Minutes Resting Tone [place]: Relaxed FHR Baseline Rate: 130 Monitor Mode: External US Variability: Moderate 6-25 bpm Accelerations: 15X15 Decelerations: None Category: Category I Datetime: 05/03/2016 14:14 Time of Arrival: 05/03/2016 13:50 EGA: 38.6 Arrived By: Ambulatory Arrived From: Home Chief Complaint: FOLLOW UP AC Movement: Present Contractions: Denies/Absent Rupture of Membranes: Denies Vaginal Bleeding: None Vaginal Discharge: Denies Recent Sexual Intercouse: Denies Abdominal Trauma: Not Applicable Patient Complaints: Other Time Provider Notified: 05/03/2016 15:30 Provider Notified: DR POWERS Initial Plan: NST, BPP WITH AC Datetime: 05/02/2016 13:00 Frequency: 1-8 Monitor Mode: External Duration (sec)2399: 40-100 Quality: Mild Pattern: Normal: <= 5 Contractions in 10 Minutes Resting Tone [place]: Relaxed FHR Baseline Rate: 120 Monitor Mode: External US FHR Baseline Changes: No Baseline Change Variability: Moderate 6-25 bpm Accelerations: 15X15 Decelerations: None Category: Category I Pain Presence: None/Denies Pain Assessment Comments: Pt denies feeling any pain or pressure with contractions Datetime: 05/02/2016 12:25 EGA: 38.5 Datetime: 05/02/2016 12:01 Temperature Route: Oral
== END 2016-05-03 16:22 | disposition home or self-care (01) ==
LOC: OBT 13:56 → L-D 13:56 → OBT 16:22
PROVIDERS: ATTEND Obstetrics & Gynecology
DX: O41.03X0 Oligohydramnios, third trimester, not applicable or unspecified (principal); Z3A.38 38 weeks gestation of pregnancy
CPT/HCPCS: 76818; Z7500; G0463

== ENCOUNTER 2016-05-05 10:39 | Inpatient (IN) | payer MEDICAID ==
[~2016-05-05] VITALS: Ht 157.5 cm; Wt 84.5 kg
[2016-05-05 10:48] VITALS: Ht 157.5 cm; Wt 84.5 kg
[2016-05-05 10:49] VITALS: BP 119/62; PULSE 104; RESP 18
--- NOTE | 2016-05-05 11:53 | RADRPT ---
PROCEDURE: OB ultrasound for biophysical profile CLINICAL INDICATION: Decreased movement TECHNIQUE: Multiple sonographic images of the pelvis were obtained. Transabdominal views of the g ravid uterus are available for review. The images were reviewed on a PACS workstation. COMPARISON: None FINDINGS: breathing movement = 2/2 tone = 2/2 motion = 2/2 AC = 2/2 AC = 8.5 cm Single live intrauterine with cardiac activity of 137 bpm. position is cephal ic. The placenta is anterior. IMPRESSION: 1. Single live intrauterine gestation. 2. Biophysical profile = 8/8. 3. AC = 8.5 cm. RPTAT: HH .Vickie Wing MD, MD Date Time Electronically viewed and signed by .Vickie Wing MD, on 05/05/2016 11:52 .G/
[2016-05-05] MEDS ORDERED: LACTATED RINGER'S 1,000 ML IV ONE (12:00)
--- NOTE | 2016-05-05 14:02 | RADRPT ---
PROCEDURE: US OB. CLINICAL INDICATION: Low AC , pain TECHNIQUE: Transabdominal views of the pelvis are available for review. COMPARISON: 05/05/16 FINDINGS: There is a single intrauterine gestation in a vertex position. The heart rate is present at 125 bpm. The placenta is anterior. The AC measures 6.6 cm. RPTAT: AA IMPRESSION: Mild oligohydramnios. .Logan Dempsey MD, MD Date Time Electronically viewed and signed by .Logan Dempsey MD, MD on 05/05/2016 14:02 .S/
[2016-05-05] MEDS ORDERED: OXYTOCIN 30 UNITS/LR 500 ML IV PRN (14:30)
[2016-05-05] MEDS ORDERED: CARBOPROST 250 MCG INJ IM PRN (14:30)
[2016-05-05] MEDS ORDERED: METHYLERGONOVINE 0.2 MG INJ IM PRN (14:30)
[2016-05-05] MEDS ORDERED: OXYTOCIN 30 UNITS/LR 500 ML IV SCH ×2 (14:30)
[2016-05-05] MEDS ORDERED: LACTATED RINGER'S 1,000 ML IV PRN (14:30)
[2016-05-05] MEDS ORDERED: LIDOCAINE 1% (MPF) 30 ML INJ INJ PRN (14:30)
[2016-05-05] MEDS ORDERED: MISOPROSTOL 200 MCG TAB PR PRN (14:30)
[2016-05-05] MEDS ORDERED: DINOPROSTONE 10 MG VAG SUPP VAG ONE (14:30)
[2016-05-05] MEDS ORDERED: IBUPROFEN 600 MG TAB PO PRN (14:30)
--- NOTE | 2016-05-05 14:36 | TRIAGE ---
OB Triage Datetime Report Generated by CPN: 05/05/2016 14:36 Datetime: 05/05/2016 14:08 Labor Evaluation Frequency: IRREGULAR Monitor Mode: External Duration (sec)2399: 40-100 Quality: Mild Pattern: Normal: <= 5 Contractions in 10 Minutes Resting Tone [place]: Relaxed Heart Rate FHR Baseline Rate: 135 Monitor Mode: External US FHR Baseline Changes: No Baseline Change Variability: Moderate 6-25 bpm Accelerations: 15X15 Decelerations: None Category: Category I Datetime: 05/05/2016 13:00 Labor Evaluation Frequency: OCASS Monitor Mode: External Duration (sec)2399: 40-140 Quality: Mild Pattern: Normal: <= 5 Contractions in 10 Minutes Resting Tone [place]: Relaxed Heart Rate FHR Baseline Rate: 130 Monitor Mode: External US FHR Baseline Changes: No Baseline Change Variability: Moderate 6-25 bpm Accelerations: 15X15 Decelerations: None Category: Category I Datetime: 05/05/2016 11:51 Labor Evaluation Frequency: OCCAS Monitor Mode: External Duration (sec)2399: 40-100 Quality: Mild Pattern: Normal: <= 5 Contractions in 10 Minutes Resting Tone [place]: Relaxed Heart Rate FHR Baseline Rate: 130 Monitor Mode: External US FHR Baseline Changes: No Baseline Change Variability: Moderate 6-25 bpm Accelerations: 15X15 Decelerations: None Category: Category I Datetime: 05/05/2016 11:45 Vaginal Exam Dilatation (cms): 0.0 Effacement (%): 30 Station: -3 Exam By: Eligio WYNN Datetime: 05/05/2016 11:00 Assessment Type: Admission Assessment Maternal Assessment Level of Consciousness: Fully Conscious DTR's/Clonus: DTRs 2+; No Clonus Headache: Denies Blurred Vision: No Respiratory Effort: Unlabored; Regular Rhythm; Equal Expansion Breath Sounds, Left: Clear and Equal Breath Sounds, Right: Clear and Equal Nausea/Vomiting: Denies RUQ Epigastric Pain: Denies Lower Extremities Edema: None Degree: None Upper Extremities Edema: None Degree: None Facial Edema: None Fall Risk Assessment History of Falling: (0) No Secondary Diagnosis: (0) No Ambulatory Aid: (0) Bedrest/Nurse Assist IV Therapy: (0) No Gait: (0) Normal/Bedrest/Immobile Mental Status: (0) Oriented to Own Ability Fall Score: 0 Fall Risk Score Definition: No Risk: No action required Labor Evaluation Frequency: OCCAS Monitor Mode: External Duration (sec)2399: 40-60 Quality: Mild Pattern: Normal: <= 5 Contractions in 10 Minutes Resting Tone [place]: Relaxed Heart Rate FHR Baseline Rate: 130 Monitor Mode: External US Variability: Moderate 6-25 bpm Accelerations: 15X15 Decelerations: None Category: Category I Datetime: 05/05/2016 10:55 Time of Arrival: 05/05/2016 10:35 EGA: 39.0 Arrived By: Ambulatory Arrived From: Home Chief Complaint: DFM Movement: Decreased Contractions: Irregular Rupture of Membranes: Denies Vaginal Bleeding: None Vaginal Discharge: Denies Recent Sexual Intercouse: Denies Abdominal Trauma: Not Applicable Patient Complaints: Other Time Provider Notified: 05/05/2016 12:14 Provider Notified: DR MARCELINO Initial Plan: NST, BPP WITH AC Datetime: 05/03/2016 14:15 Fall Score: 0 Fall Risk Score Definition: No Risk: No action required Datetime: 05/03/2016 14:14 EGA: 38.5 Datetime: 05/02/2016 12:25 EGA: 38.4 Datetime: 05/02/2016 11:15 Fall Score: 0 Fall Risk Score Definition: No Risk: No action required Datetime: 04/30/2016 18:54 Fall Score: 0 Fall Risk Score Definition: No Risk: No action required Datetime: 04/30/2016 18:53 EGA: 38.2 Datetime: 04/29/2016 12:36 Fall Score: 0 Fall Risk Score Definition: No Risk: No action required Datetime: 04/29/2016 12:20 EGA: 38.1 Datetime: 04/27/2016 19:20 Fall Score: 0 Fall Risk Score Definition: No Risk: No action required Datetime: 04/27/2016 18:26 EGA: 37.6 Datetime: 04/27/2016 18:16 Fall Score: 0 Fall Risk Score Definition: No Risk: No action required Datetime: 04/25/2016 11:40 EGA: 37.4 Datetime: 04/25/2016 10:41 Fall Score: 0 Fall Risk Score Definition: No Risk: No action required Datetime: 04/24/2016 12:51 Fall Score: 0 Fall Risk Score Definition: No Risk: No action required Datetime: 04/24/2016 12:38 EGA: 37.3 Datetime: 04/11/2016 22:29 Fall Score: 15 Fall Risk Score Definition: No Risk: No action required Datetime: 04/11/2016 22:23 EGA: 35.4 Datetime: 02/08/2016 10:05 EGA: 26.4 Fall Score: 0 Fall Risk Score Definition: No Risk: No action required
[2016-05-05] MEDS: LACTATED RINGER'S 1,000 ML IV SCH ×2 (14:51→21:15)
[2016-05-05 14:59] LABS: ADD SCAN DIFF NO
[2016-05-05 15:11] LABS: BASOPHILS % 0.2 % (0.0-2.0); EOSINOPHILS # 0.1 10^3/ul (0.0-0.5); EOSINOPHILS % 0.8 % (0.0-7.0); HEMATOCRIT 30.5 % (37.0-47.0); HEMOGLOBIN 10.6 g/dl (12.0-16.0); LYMPHOCYTES # 1.5 10^3/ul (0.8-2.9); LYMPHOCYTES % 17.2 % (18.0-55.0); MEAN CORPUSCULAR HEMOGLOBIN 28.7 pg (29.0-33.0); MEAN CORPUSCULAR HGB CONC 34.8 g/dl (32.0-37.0); MEAN CORPUSCULAR VOLUME 82.7 fl (72.0-104.0); MEAN PLATELET VOLUME 10.2 fl (7.4-10.4); MONOCYTE # 0.5 10^3/ul (0.3-0.9); MONOCYTES % 5.4 % (0.0-13.0); NEUTROPHIL # 6.3 10^3/ul (1.6-7.5); PLATELET COUNT 195 10^3/UL (140-415); RED BLOOD COUNT 3.69 10^6/ul (4.20-5.40); RED CELL DISTRIBUTION WIDTH 13.6 % (11.5-14.5); WHITE BLOOD COUNT 8.5 10^3/ul (4.8-10.8)
[2016-05-05 15:14] LABS: INR 0.92; PROTIME 12.4 Sec (12.2-14.2)
[2016-05-05 15:15] LABS: PARTIAL THROMBOPLASTIN TIME 24.9 Sec (25.0-35.0)
[2016-05-06] MEDS: BUTORPHANOL 2 MG INJ IV PRN ×2 (01:43→03:04)
[2016-05-06] MEDS: LACTATED RINGER'S 1,000 ML IV SCH ×2 (04:56→10:55)
[2016-05-06] MEDS ORDERED: ONDANSETRON 4 MG INJ IV PRN ×2 (10:00→17:30)
[2016-05-06] MEDS ORDERED: FENTAnyl 2MCG/ML-ROPIV 0.2% 100 ML BAG EPI SCH (10:00)
[2016-05-06] MEDS ORDERED: EPHEDrine SULFATE 50 MG/5 ML SYG IV PRN (10:00)
[2016-05-06] MEDS ORDERED: NALOXONE (0.4 MG/ML) INJ IV PRN (10:00)
--- NOTE | 2016-05-06 15:48 | LDN ---
Date/Time of Note Date/Time of Note DATE: 05/06/16 TIME: 15:45 Delivery Summary Normal spontaneous vaginal delivery of a baby boy from [facility] position shoulders delivered without difficulty rest of the baby's body followed placenta spontaneous expulsion inspected complete patient sustained small first-degree perineal laceration repaired with 3-0 chromic catgut Problems: Infant Delivery Information Sex Sex: male Apgars 1 Minute: 9 5 Minute: 9 Suctioning Nose & mouth suctioned at [place]: Yes Delee suction performed: No Umbilical Cord Umbilical cord with: 3 Vessels Cord presentations: nuchal cord Cord Blood was obtained: Yes LENO MARCELINO MD May 06, 2016 15:48
--- NOTE | 2016-05-06 15:58 | HP ---
Date/Time of Note Date/Time of Note DATE: 05/06/16 TIME: 15:48 OB - History Hx of Present Free Text/Dictation 20 years old female admitted to [facility] with a diagnosis of low AC for induction of labor admitting pelvic examination cervix closed effacement 30% vertex at -3 station. Plan of induction Cervidil This patient has been under the care of [facility] and her was not complicated with gestational diabetes -induced hypertension or any other medical or surgical condition Allergy decline allergy to any known medication Social habit declines use of illicit drug smoking or drinking Family history unremarkable Review of system within normal Estimated Due Date: May 12, 2016 : 2 Spontaneous : 1 Care: None Obstetrical Complications: None Past Family/Social History * Past Medical, Surgical, Family and Obstetric Histories reviewed from chart. Rubella: immune RPR/VDRL: Negative GBS Status: Negative HBsAG: Negative OB Admission Exam Vital Signs Vital Signs Vital Signs Date Time Temp Pulse Resp B/P Pulse Ox O2 Delivery O2 Flow Rate FiO2 05/05/16 10:49 97.8 104 18 119/62 Room Air Physical Exam HEENT: WNL Heart: Rhythm Normal Lungs: Clear, Equal Extremities: Normal Reflexes: Normal Effacement: 25% Station: -3 Membranes: Intact Heart Rate: 120's Decelerations: No Decelerations Varibility: Absent Contractions on Admission: None Last 72 hours Lab Results CBC & BMP 05/05/16 14:50 LENO MARCELINO MD May 06, 2016 15:58
[2016-05-06 17:15] VITALS: BP 137/74; PULSE 90; RESP 18
[2016-05-06] MEDS ORDERED: OXYCODONE/ASPIRIN (4.88/325) TAB PO PRN ×2 (17:30)
[2016-05-06] MEDS ORDERED: ACETAMINOPHEN 325 MG TAB PO PRN (17:30)
[2016-05-06] MEDS ORDERED: WITCH HAZEL/GLYCERIN PAD PR PRN (17:30)
[2016-05-06] MEDS ORDERED: DIBUCAINE 1% 30 GM OINT PR PRN (17:30)
[2016-05-06] MEDS ORDERED: LANOLIN 7 GM TUBE TOP PRN (17:30)
[2016-05-06] MEDS ORDERED: BENZOCAINE 20% 56 ML SPRAY TOP PRN (17:30)
[2016-05-06] MEDS ORDERED: ACETAMINOPHEN/CODEINE #3 TAB PO PRN ×2 (17:30)
[2016-05-06] MEDS: OXYTOCIN 30 UNITS/LR 500 ML IV SCH ×2 (17:46→20:24)
[2016-05-06] MEDS: IBUPROFEN 600 MG TAB PO SCH ×2 (18:27→23:47)
[2016-05-06 20:00] VITALS: BP 125/65
[2016-05-06] MEDS: SENNA/DOCUSATE NA (8.6MG/50MG) TAB PO SCH (21:09)
[2016-05-07] VITALS: BP 116/63; PULSE 80; RESP 18
[2016-05-07 04:00] VITALS: BP 108/88; PULSE 74; RESP 18
[2016-05-07] MEDS: IBUPROFEN 600 MG TAB PO SCH ×3 (06:15→17:50)
[2016-05-07 07:30] VITALS: BP 116/66; PULSE 86; RESP 18
[2016-05-07 08:24] LABS: ADD SCAN DIFF NO
[2016-05-07 08:27] LABS: BASOPHILS % 0.2 % (0.0-2.0); EOSINOPHILS # 0.1 10^3/ul (0.0-0.5); EOSINOPHILS % 0.7 % (0.0-7.0); HEMATOCRIT 28.7 % (37.0-47.0); HEMOGLOBIN 9.9 g/dl (12.0-16.0); LYMPHOCYTES # 1.6 10^3/ul (0.8-2.9); LYMPHOCYTES % 12.7 % (18.0-55.0); MEAN CORPUSCULAR HEMOGLOBIN 28.7 pg (29.0-33.0); MEAN CORPUSCULAR HGB CONC 34.5 g/dl (32.0-37.0); MEAN CORPUSCULAR VOLUME 83.2 fl (72.0-104.0); MEAN PLATELET VOLUME 10.1 fl (7.4-10.4); MONOCYTE # 0.7 10^3/ul (0.3-0.9); MONOCYTES % 5.5 % (0.0-13.0); NEUTROPHIL # 9.8 10^3/ul (1.6-7.5); NEUTROPHILS % 80.2 % (30.0-74.0); PLATELET COUNT 177 10^3/UL (140-415); RED BLOOD COUNT 3.45 10^6/ul (4.20-5.40); RED CELL DISTRIBUTION WIDTH 13.6 % (11.5-14.5); WHITE BLOOD COUNT 12.2 10^3/ul (4.8-10.8)
[2016-05-07] MEDS ORDERED: INFLUENZA VIRUS VACCINE 0.5 ML (DISPENSING) IM* ONE (09:00)
--- NOTE | 2016-05-07 09:45 | PN ---
Date/Time of Note Date/Time of Note DATE: 05/07/16 TIME: 09:43 OB Subjective Subjective Subjective day Vital signs stable afebrile abdomen soft uterus firm lochia normal extremity normal ambulation recommended LENO MARCELINO MD May 07, 2016 09:45
[2016-05-07] MEDS: SENNA/DOCUSATE NA (8.6MG/50MG) TAB PO SCH ×2 (10:22→20:44)
[2016-05-07 16:05] VITALS: BP 124/69; PULSE 75; RESP 19
[2016-05-07 19:44] VITALS: BP 117/72; PULSE 82; RESP 18
[2016-05-08 04:00] VITALS: BP 109/62; PULSE 69; RESP 18
[2016-05-08] MEDS: IBUPROFEN 600 MG TAB PO SCH ×3 (04:08→11:27)
[2016-05-08 08:15] VITALS: BP 117/60; PULSE 72; RESP 19
[2016-05-08] MEDS ORDERED: MEASLES,MUMPS,RUBELLA VACCINE INJ SC* ONE (09:00)
[2016-05-08] MEDS: SENNA/DOCUSATE NA (8.6MG/50MG) TAB PO SCH (09:00)
--- NOTE | 2016-05-08 14:03 | PD.PPDC ---
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
--- NOTE | 2016-05-08 14:05 | DS ---
Date/Time of Note Date/Time of Note DATE: 05/08/16 TIME: 14:04 Obstetrical Discharge Record Final Diagnosis Final Diagnosis: Term delivered Vaginal Delivery Obstetrical Delivery: Spontaneous Condition on Discharge Physical Assessment Last Vitals: Post normal delivery day 2 Afebrile abdomen soft uterus firm lochia normal extremity normal patient discharged home with follow-up instructions to be seen at the clinic in 2 weeks Voiding: Yes Bowel Movement: Yes Breast: Soft, non-tender, Filling Fundus: Firm Calf Tenderness: No Patient Condition: Good LENO MARCELINO MD May 08, 2016 14:05
== END 2016-05-08 16:35 | disposition home or self-care (01) | DRG 775 ==
LOC: OBT 10:39 → L-D 10:40 → OBT 14:10 → L-D 14:53 → PP1 05-06 17:23
PROVIDERS: ADMIT Obstetrics & Gynecology; ATTEND Obstetrics & Gynecology
PROC: 10E0XZZ Delivery of Products of Conception, External Approach (ICD-10-PCS; principal; 2016-05-06)
PROC: 0HQ9XZZ Repair Perineum Skin, External Approach (ICD-10-PCS; 2016-05-06)
PROC: 3E00X4Z Introduction of Serum, Toxoid and Vaccine into Skin and Mucous Membranes, External Approach (ICD-10-PCS; 2016-05-07)
DX: O69.81X0 Labor and delivery complicated by cord around neck, without compression, not applicable or unspecified (principal); O70.0 First degree perineal laceration during delivery; Z23 Encounter for immunization; Z3A.38 38 weeks gestation of pregnancy; Z37.0 Single live birth
CPT/HCPCS: 62319; 76816; 76818; 85025; 85610; 85730; 86592; 86900; 86901; 90686; 96360; G0463; J2590; J3010; J7120

== ENCOUNTER 2018-04-04 19:28 | Inpatient (IN) | payer MEDICAID ==
[~2018-04-04] VITALS: Ht 157.5 cm; Wt 73.5 kg
[~2018-04-04 19:28] MED LIST changes: +IBUP-1542 PO
[2018-04-04 19:36] VITALS: Ht 157.5 cm; Wt 73.5 kg
[2018-04-04] MEDS ORDERED: ACETAMINOPHEN 325 MG TAB PO STA (20:03)
[2018-04-04] MEDS ORDERED: ONDANSETRON 4 MG INJ IV STA (20:03)
[2018-04-04] MEDS ORDERED: SODIUM CHLORIDE 0.9% 1L BAG IV* STA (20:03)
[2018-04-04] MEDS ORDERED: CEFEPIME 2GM/50 ML (PMX) 50 ML IVPB STA (20:03)
[2018-04-04] MEDS ORDERED: morphine 4 MG/ML VIAL IV STA (20:03)
[2018-04-04] MEDS ORDERED: KETOROLAC 30 MG INJ IV STA (20:21)
--- NOTE | 2018-04-04 20:21 | ERD ---
ER Documentation Chief Complaint Chief Complaint FEVER, BODY ACHES X 1 DAY HPI This is a very pleasant 22-year-old female with a history of asthma. She indicates that for the past 24 hours she has been having tactile fever generaliz ed myalgias weakness. She is also been complaining of bilateral flank pain. She states she is experiencing mild frequency urgency and dysuria. She denies any recent travel or prolonged immobilization. She complains of a bandlike headache but denies any neck pain. She took NyQuil but this did not improve her symptoms. She denies a productive or nonproductive cough. She denies any shortness of breath at rest or exertion. She denies any dysphagia or throat pain. ROS All systems reviewed and are negative except as per history of present illness. Medications Home Meds Active Scripts Ibuprofen* (Motrin*) 600 Mg Tab, 600 MG PO Q6 for pain, #30 TAB Prov:QUOC SERRANO 03/18/18 Reported Medications Ferrous Sulfate (Iron) 325 Mg Capsule.er, 325 MG PO DAILY, CAP 04/11/16 Multivit/Min/Fol Ac/Iron/Pren* ( S*) 1 Tab Tab, 1 TAB PO DAILY, TAB 04/11/16 Allergies Allergies: Coded Allergies: No Known Drug Allergies (Verified Allergy, Unknown, 04/30/16) PMhx/Soc Hx Alcohol Use: No Hx Substance Use: No Hx Tobacco Use: No Physical Exam Vitals Vital Signs Date Temp Pulse Resp B/P (MAP) Pulse Ox O2 O2 Flow FiO2 Time Delivery Rate 04/04/18 103.0 20:29 04/04/18 103.0 20:29 04/04/18 103.0 20:19 04/04/18 105.7 150 28 107/59 97 19:36 (75) Physical Exam Constitutional:Well-developed. Well-nourished. HEENT:Normocephalic. Atraumatic.Pupils were equal round reactive to light. Very dry mucous membranes.No tonsillar exudates. Neck: No nuchal rigidity. No lymphadenopathy. No posterior cervical spine tenderness or step-offs. Respiratory: Not using accessory muscles of respiration.Lungs were clear to auscultation bilaterally. No rhonchi. No rales. No wheezing. Cardiovascular: Regular rate regular rhythm.No murmurs. No rubs were appreciated.S1, S2 normal. Distal pulses are palpable 2+ bilaterally. GI: Abdomen was soft. Nontender. Non Distended. No pulsatile abdominal masses or bruits. No rebound. No guarding. Bowel sounds were present and normal. Left CVA tenderness. Muscle skeletal: Full range of motion of both the upper and lower extremities bilaterally.Normal muscle tone.No assymetrical calf tenderness or swelling. Skin: No petechia, no purpura. No lesions on the palms or the soles of the feet. No maculopapular rash. NEURO: Patient was alert, awake, orientated x3.No facial droop. Gait observed and normal with no ataxia.Speech had regular rate and rhythm. No focal neurological deficits. Result Diagram: 04/04/18200504/04/182005 Results 24 hrs Laboratory Tests Test 04/04/18 20:06 04/04/18 20:16 04/04/18 20:19 White Blood Count 9.5 10^3/ul Red Blood Count 4.64 10^6/ul Hemoglobin 12.9 g/dl Hematocrit 38.0 % Mean Corpuscular Volume 81.9 fl Mean Corpuscular Hemoglobin 27.8 pg Mean Corpuscular 33.9 g/dl Hemoglobin Concent Red Cell Distribution Width 12.9 % Platelet Count 193 10^3/UL Mean Platelet Volume 9.5 fl Immature Granulocytes % 0.300 % Neutrophils % 77.1 % Lymphocytes % 11.1 % Monocytes % 11.1 % Eosinophils % 0.2 % Basophils % 0.2 % Nucleated Red Blood Cells % 0.0 /100WBC Immature Granulocytes # 0.030 10^3/ul Neutrophils # 7.3 10^3/ul Lymphocytes # 1.1 10^3/ul Monocytes # 1.1 10^3/ul Eosinophils # 0.0 10^3/ul Basophils # 0.0 10^3/ul Nucleated Red Blood Cells # 0.0 10^3/ul Prothrombin Time 13.5 Sec Prothrombin Time Ratio 1.1 INR International 1.02 Normalized Ratio Activated Partial Thromboplast 28.5 Sec Time Urine Color YELLOW Urine Clarity CLOUDY Urine pH 7.0 Urine Specific [place] 1.017 Urine Ketones NEGATIVE mg/dL Urine Nitrite POSITIVE mg/dL Urine Bilirubin NEGATIVE mg/dL Urine Urobilinogen 1+ mg/dL Urine Leukocyte Esterase 3+ Sean/ul Urine Microscopic RBC 7 /HPF Urine Microscopic WBC 150 /HPF Urine Squamous Epithelial Cells MODERATE /HPF Urine Bacteria FEW /HPF Urine Hemoglobin 2+ mg/dL Urine Glucose NEGATIVE mg/dL Urine Total Protein 1+ mg/dl Sodium Level 140 mmol/L Potassium Level 3.7 mmol/L Chloride Level 100 mmol/L Carbon Dioxide Level 23 mmol/L Anion Gap 17 Blood Urea Nitrogen 14 mg/dl Creatinine 0.71 mg/dl Est Glomerular Filtrat > 60 mL/min Rate mL/min Glucose Level 125 mg/dl Calcium Level 9.8 mg/dl Total Bilirubin 0.7 mg/dl Direct Bilirubin 0.00 mg/dl Indirect Bilirubin 0.7 mg/dl Aspartate Amino Transf (AST/SGOT) 20 IU/L Alanine 17 IU/L Aminotransferase (ALT/SGPT) Alkaline Phosphatase 77 IU/L Total Protein 8.2 g/dl Albumin 4.4 g/dl Globulin 3.80 g/dl Albumin/Globulin Ratio 1.15 Amylase Level 57 U/L Lipase 56 U/L POC Venous Lactate 1.2 mmol/L POC Beta HCG, Qualitative NEGATIVE Current Medications Medications Dose Sig/Ford Start Time Status Last (Trade) Ordered Route PRN Stop Time Admin Dose Reason Admin Sodium 2,210 ml BOLUS OVER 2 04/04/18 DC 04/04/18 Chloride HOURS STAT 20:03 20:29 (NS) IV* 04/04/18 20:05 650 mg ONCE STAT 04/04/18 DC 04/04/18 Acetaminophen PO 20:03 20:29 (Tylenol 04/04/18 20:05 Tab) Morphine 4 mg ONCE STAT 04/04/18 DC 04/04/18 Sulfate IV 20:03 20:28 (morphine) 04/04/18 20:05 Ondansetron 4 mg ONCE STAT 04/04/18 DC 04/04/18 HCl (Zofran IV 20:03 20:28 Inj) 04/04/18 20:05 Cefepime HCl 50 ml @ ONCE STAT 04/04/18 DC 04/04/18 100 mls/hr IVPB 20:03 20:29 04/04/18 20:32 Vancomycin 250 ml @ ONCE ONCE 04/04/18 HCl 125 mls/hr IVPB 20:30 04/04/18 22:29 Ibuprofen 800 mg ONCE ONCE 04/04/18 DC 04/04/18 (Motrin) PO 20:30 20:29 04/04/18 20:31 Ketorolac 30 mg ONCE STAT 04/04/18 DC 04/04/18 Tromethamine IV 20:21 20:30 (Toradol) 04/04/18 20:22 Procedures/MDM This is a 22-year-old female presented to the emergency department with myalgias flank pain and was febrile. She did meet Sirs criteria. However her lactic acid was within normal limits. She did receive a 30 cc/kg bolus of normal saline. Blood cultures and urine cultures were obtained. 12 Lead EKG tracing ordered and reviewed by myself showed: Sinus tachycardia of 138 bpm and no arrhythmia. AR interval normal. QRS duration normal. No ST segment elevation. No ST segment depression. No changes consistent with acute ischemia. The patient had significant pyuria. The patient will be admitted to the hospital to treat her pyelonephritis. She was given IV ceftriaxone and vancomycin. Her influenza swab was negative. Departure Diagnosis: Primary Impression: Pyelonephritis Condition: RUSSELL Camacho MD Apr 04, 2018 20:21
[2018-04-04] MEDS ORDERED: IBUPROFEN 800 MG TAB PO ONE (20:30)
[2018-04-04] MEDS ORDERED: VANCOMYCIN 1 GM (PMX) 250 ML IVPB ONE (20:30)
[2018-04-04] MEDS: SOD CHLORIDE 0.9% 1,000 ML IV SCH (21:30)
[2018-04-04] MEDS ORDERED: morphine 2 MG INJ IV PRN (21:30)
[2018-04-04] MEDS ORDERED: ACETAMINOPHEN 325 MG TAB PO PRN (21:30)
[2018-04-04] MEDS ORDERED: ACETAMINOPHEN 650 MG SUPP PR PRN (21:30)
[2018-04-04] MEDS ORDERED: ONDANSETRON 4 MG INJ IV PRN ×2 (21:30)
[2018-04-04] MEDS ORDERED: NACL 0.9% 3 ML SYG IV SCH (21:30)
--- NOTE | 2018-04-04 21:50 | HP ---
Date/Time of Note Date/Time of Note DATE: 04/04/18 TIME: 21:50 Assessment/Plan VTE Prophylaxis Pharmacological prophylaxis: other Lines/Catheters IV Catheter Type (from Nrs): Saline Lock Assessment/Plan Hospital Course Objective Physical exam General: Patient is laying in bed and answers questions appropriately Mentation: Patient is alert and oriented 4, Head: Normocephalic atraumatic Eyes: EOMI, pupils reactive to light Neck: Supple, nontender, midline Respiratory: Clear to auscultation bilaterally Cardiovascular: regular rate, no obvious murmurs Gastrointestinal: non-tender to palpation, bowel sounds heard. Neurological: Moves all extremities spontaneously Skin: No new skin lesions Assessment and plan Questionable pyelonephritis -Bilateral flank pain with urinary frequency and questionable positive UA -First UA was a dirty catch although would be consistent with her symptoms for pyelonephritis, repeating UA right now -CT was taken in the ED and pending read -IV levaquin, given cefepime and vancomycin in the ED, will start Levaquin at appropriate time tomorrow Sepsis -Secondary to above pyelonephritis -Blood cultures -IV fluid -Lactic acid negative so far History of asthma -DuoNeb as needed Tachycardia -Secondary to above sepsis, resolving Disposition -Pending CT read, and repeat UA, treat for acute pyelonephritis for now if above studies are negative, await blood culture results. Result Diagram: 04/04/18200504/04/182005 Results 24hrs Laboratory Tests Test 04/04/18 20:06 04/04/18 20:16 04/04/18 20:19 White Blood Count 9.5 # Red Blood Count 4.64 # Hemoglobin 12.9 # Hematocrit 38.0 # Mean Corpuscular Volume 81.9 L Mean Corpuscular Hemoglobin 27.8 L Mean Corpuscular Hemoglobin Concent 33.9 Red Cell Distribution Width 12.9 Platelet Count 193 Mean Platelet Volume 9.5 Immature Granulocytes % 0.300 Neutrophils % 77.1 H Lymphocytes % 11.1 L Monocytes % 11.1 H Eosinophils % 0.2 Basophils % 0.2 Nucleated Red Blood Cells % 0.0 Immature Granulocytes # 0.030 Neutrophils # 7.3 Lymphocytes # 1.1 Monocytes # 1.1 H Eosinophils # 0.0 Basophils # 0.0 Nucleated Red Blood Cells # 0.0 Prothrombin Time 13.5 Prothrombin Time Ratio 1.1 INR International Normalized Ratio 1.02 Activated Partial Thromboplast Time 28.5 Urine Color YELLOW Urine Clarity CLOUDY A Urine pH 7.0 Urine Specific [place] 1.017 Urine Ketones NEGATIVE Urine Nitrite POSITIVE A Urine Bilirubin NEGATIVE Urine Urobilinogen 1+ H Urine Leukocyte Esterase 3+ H Urine Microscopic RBC 7 H Urine Microscopic WBC 150 H Urine Squamous Epithelial Cells MODERATE Urine Bacteria FEW A Urine Hemoglobin 2+ H Urine Glucose NEGATIVE Urine Total Protein 1+ H Sodium Level 140 Potassium Level 3.7 Chloride Level 100 Carbon Dioxide Level 23 Anion Gap 17 H Blood Urea Nitrogen 14 Creatinine 0.71 Est Glomerular Filtrat Rate mL/min > 60 Glucose Level 125 Calcium Level 9.8 Total Bilirubin 0.7 Direct Bilirubin 0.00 Indirect Bilirubin 0.7 Aspartate Amino Transf (AST/SGOT) 20 Alanine Aminotransferase (ALT/SGPT) 17 Alkaline Phosphatase 77 Total Protein 8.2 H Albumin 4.4 Globulin 3.80 H Albumin/Globulin Ratio 1.15 Amylase Level 57 Lipase 56 POC Venous Lactate 1.2 POC Beta HCG, Qualitative NEGATIVE HPI/ROS Admit Date/Time Admit Date/Time Hx of Present Illness Patient is a 22-year-old female with a past medical history significant for asthma who presents to [facility] for 1 day of fevers, body aches, bilateral flank pain, urinary frequency but not dysuria, as well as headache. Currently patient feels better than when she originally came in however still has some of the symptoms. Patient denies chest pain, shortness of breath, cough, abdominal pain, leg pain. PMH/Family/Social Past Medical History Medications Current Medications Vancomycin HCl 250 ml @ 125 mls/hr ONCE ONCE IVPB Last administered on 04/04/18at 21:13; Admin Dose 125 MLS/HR; Start 04/04/18 at 20:30; Stop 04/04/18 at 22:29 Ondansetron HCl (Zofran Inj) 4 mg ER BRIDGE PRN IV NAUSEA/VOMITING; Start 04/04/18 at 21:30; Stop 04/05/18 at 21:29 Acetaminophen (Tylenol Tab) 650 mg ER BRIDGE PRN PO .MILD PAIN 1-3 OR TEMP; Start 04/04/18 at 21:30; Stop 04/05/18 at 21:29 Coded Allergies: No Known Drug Allergies (Verified Allergy, Unknown, 04/30/16) Social History Smoking Status: Never smoker Exam/Review of Systems Vital Signs Vitals Vital Signs Date Temp Pulse Resp B/P (MAP) Pulse Ox O2 O2 Flow FiO2 Time Delivery Rate 04/04/18 99.0 110 20 100/61 100 Room Air 21:19 (74) CATINA BARNETT Apr 04, 2018 21:50
[2018-04-04] MEDS ORDERED: ALBUTEROL/IPRATROPIUM (NEB) 3 ML AMP HHN PRN (22:00)
[2018-04-04 22:15] VITALS: PULSE 90
[2018-04-05] VITALS (8 sets, daily range): BP systolic 97–122; BP diastolic 53–65; PULSE 65–83; RESP 17–18
[2018-04-05] MEDS: SOD CHLORIDE 0.9% 1,000 ML IV SCH ×2 (07:30→09:31)
[2018-04-05] MEDS ORDERED: CEFTRIAXONE 1 GM/50 ML (PMX) 50 ML IVPB SCH (09:00)
[2018-04-05] MEDS ORDERED: LEVOFLOXACIN 750MG/D5W (PMX) 150 ML IVPB SCH (09:00)
--- NOTE | 2018-04-05 09:24 | DS ---
Date/Time of Note Date/Time of Note DATE: 04/05/18 TIME: 09:24 Discharge Summary Admission/Discharge Info Admit Date/Time Apr 04, 2018 at 21:05 Discharge Date/Time Discharge Diagnosis Sepsis 2/2 UTI . Patient Condition: Stable Consults None . Procedures CT abdomen and pelvis. . Hospital Course 22-year-old female who was admitted with Sepsis secondary to urinary tract infection and concern for possible pyelonephritis. Urine came out growing gram- negative rods, patient was started on empiric Levaquin and has responded very well to this regimen. Patient will be discharged on Levaquin and will follow-up sensitivity and notify her if any changes required. Patient is discharged in stable condition. . Home Meds Active Scripts Ibuprofen* (Motrin*) 600 Mg Tab, 600 MG PO Q6 for pain, #30 TAB Prov:QUOC SERRANO 03/18/18 Reported Medications Ferrous Sulfate (Iron) 325 Mg Capsule.er, 325 MG PO DAILY, CAP 04/11/16 Multivit/Min/Fol Ac/Iron/Pren* ( S*) 1 Tab Tab, 1 TAB PO DAILY, TAB 04/11/16 Follow-up Plan Followup with your primary doctor within the next 1-2 weeks. If you don't have one please let someone know, we can give you resources that may help you pick one. You may call Dr Rupert Powell's office. he's accepting new patients Name, Degree: Rupert Powell MD Specialty: Internal Medicine Comments: Office Address: [address] [place] [address] Office Office You may also call your insurance company to assign one to you. Review your medication list with your nurse before leaving and if you need new prescriptions please let your nurse know. I may have made changes to your home medications or given you new prescriptions, please let your primary doctor know as well. Stay compliant with your medications and report any side effects to your PCP or pharmacist. Return to the ER if you have any concerns and cannot reach your doctors or call your insurance company, they usually have a nurse that can help you. Primary Care Provider Care Physician No Primary Time spent on discharge: > 30 minutes Pending Labs Laboratory Tests Test 04/04/18 20:06 04/04/18 20:16 04/04/18 20:19 04/04/18 21:54 White Blood 9.5 Count 10^3/ul (4.8-10 .8) Red Blood 4.64 Count 10^6/ul (4.20-5 .40) Hemoglobin 12.9 g/dl (12.0-16.0 ) Hematocrit 38.0 % (37.0-47.0) Mean 81.9 Corpuscular fl (82.0-101.0) Volume Mean 27.8 Corpuscular pg (29.0-33.0) Hemoglobin Mean 33.9 Corpuscular g/dl (32.0-37.0 Hemoglobin Conc ) ent Red Cell 12.9 Distribution % (11.5-14.5) Width Platelet Count 193 10^3/UL (140-41 5) Mean Platelet 9.5 Volume fl (7.4-10.4) Immature 0.300 Granulocytes % % (0.001-0.429) Neutrophils % 77.1 % (39.0-77.0) Lymphocytes % 11.1 % (15.0-51.0) Monocytes % 11.1 % (0.0-11.0) Eosinophils % 0.2 % (0.0-7.0) Basophils % 0.2 % (0.0-2.0) Nucleated Red 0.0 Blood Cells % /100WBC (0.0-0. 0) Immature 0.030 Granulocytes # 10^3/ul (0.0-0. 031) Neutrophils # 7.3 10^3/ul (1.6-7. 5) Lymphocytes # 1.1 10^3/ul (0.8-2. 9) Monocytes # 1.1 10^3/ul (0.3-0. 9) Eosinophils # 0.0 10^3/ul (0.0-0. 5) Basophils # 0.0 10^3/ul (0.0-0. 1) Nucleated Red 0.0 Blood Cells # 10^3/ul (0.0-0. 0) Prothrombin 13.5 Time Sec (11.9-14.9) Prothrombin 1.1 Time Ratio INR 1.02 International Normalized Rati o Activated 28.5 Partial Thrombo Sec (23.0-35.0) plast Time Urine Color YELLOW (YELLOW) YELLOW (YELLOW ) Urine Clarity CLOUDY (CLEAR) CLOUDY (CLEAR) Urine pH 7.0 (5.0-9.0) 5.0 (5.0-9.0) Urine Specific 1.017 (1.003-1. 1.006 (1.003-1 [place] 030) .030) Urine Ketones NEGATIVE NEGATIVE mg/dL (NEGATIVE mg/dL (NEGATIV ) E) Urine Nitrite POSITIVE NEGATIVE mg/dL (NEGATIVE mg/dL (NEGATIV ) E) Urine NEGATIVE NEGATIVE Bilirubin mg/dL (NEGATIVE mg/dL (NEGATIV ) E) Urine 1+ NEGATIVE Urobilinogen mg/dL (NEGATIVE mg/dL (NEGATIV ) E) Urine Leukocyte 3+ 2+ Esterase Sean/ul (NEGATIV Sean/ul (NEGATI E) VE) Urine 7 /HPF (0-5) 3 /HPF (0-5) Microscopic RBC Urine 150 /HPF (0-5) 32 /HPF (0-5) Microscopic WBC Urine Squamous MODERATE MODERATE Epithelial Cell /HPF (FEW) /HPF (FEW) s Urine Bacteria FEW /HPF FEW /HPF (NONE SEEN) (NONE SEEN) Urine 2+ 2+ Hemoglobin mg/dL (NEGATIVE mg/dL (NEGATIV ) E) Urine Glucose NEGATIVE NEGATIVE mg/dL (NEGATIVE mg/dL (NEGATIV ) E) Urine Total 1+ NEGATIVE Protein mg/dl (NEGATIVE mg/dl (NEGATIV ) E) Sodium Level 140 mmol/L (135-144 ) Potassium 3.7 Level mmol/L (3.5-5.1 ) Chloride Level 100 mmol/L (97-110) Carbon Dioxide 23 Level mmol/L (21-31) Anion Gap 17 (5-13) Blood Urea 14 mg/dl (7-20) Nitrogen Creatinine 0.71 mg/dl (0.44-1.0 0) Est Glomerular > 60 Filtrat mL/min (>60) Rate mL/min Glucose Level 125 mg/dl (70-220) Calcium Level 9.8 mg/dl (8.4-10.2 ) Total 0.7 Bilirubin mg/dl (0.2-1.3) Direct 0.00 Bilirubin mg/dl (0.00-0.2 0) Indirect 0.7 Bilirubin mg/dl (0-1.1) Aspartate Amino 20 IU/L (15-46) Transf (AST/SGO T) Alanine 17 IU/L (13-69) Aminotransferas e (ALT/SGPT) Alkaline 77 Phosphatase IU/L (42-121) Total Protein 8.2 g/dl (6.1-8.1) Albumin 4.4 g/dl (3.3-4.9) Globulin 3.80 g/dl (1.3-3.2) Albumin/Globuli 1.15 n Ratio Amylase Level 57 U/L (11-123) Lipase 56 U/L (23-300) POC Venous 1.2 Lactate mmol/L (0.5-2. 0) POC Beta HCG, NEGATIVE (NEGA Qualitative TIVE) Test 04/05/18 00:37 04/05/18 05:14 Lactic Acid 0.6 Level mmol/L (0.5-2.0 ) White Blood 9.6 Count 10^3/ul (4.8-1 0.8) Red Blood 3.87 Count 10^6/ul (4.20- 5.40) Hemoglobin 10.9 g/dl (12.0-16. 0) Hematocrit 32.9 % (37.0-47.0) Mean 85.0 Corpuscular fl (82.0-101.0 Volume ) Mean 28.2 Corpuscular pg (29.0-33.0) Hemoglobin Mean 33.1 Corpuscular g/dl (32.0-37. Hemoglobin Conc 0) ent Red Cell 13.3 Distribution % (11.5-14.5) Width Platelet Count 165 10^3/UL (140-4 15) Mean Platelet 9.5 Volume fl (7.4-10.4) Immature 0.300 Granulocytes % % (0.001-0.429 ) Neutrophils % 64.1 % (39.0-77.0) Lymphocytes % 23.8 % (15.0-51.0) Monocytes % 10.6 % (0.0-11.0) Eosinophils % 1.0 % (0.0-7.0) Basophils % 0.2 % (0.0-2.0) Nucleated Red 0.0 Blood Cells % /100WBC (0.0-0 .0) Immature 0.030 Granulocytes # 10^3/ul (0.0-0 .031) Neutrophils # 6.1 10^3/ul (1.6-7 .5) Lymphocytes # 2.3 10^3/ul (0.8-2 .9) Monocytes # 1.0 10^3/ul (0.3-0 .9) Eosinophils # 0.1 10^3/ul (0.0-0 .5) Basophils # 0.0 10^3/ul (0.0-0 .1) Nucleated Red 0.0 Blood Cells # 10^3/ul (0.0-0 .0) Sodium Level 143 mmol/L (135-14 4) Potassium 3.9 Level mmol/L (3.5-5. 1) Chloride Level 112 mmol/L (97-110 ) Carbon Dioxide 25 Level mmol/L (21-31) Anion Gap 6 (5-13) Blood Urea 11 Nitrogen mg/dl (7-20) Creatinine 0.56 mg/dl (0.44-1. 00) Est Glomerular > 60 Filtrat mL/min (>60) Rate mL/min Glucose Level 104 mg/dl (70-220) Calcium Level 8.1 mg/dl (8.4-10. 2) Magnesium 2.1 Level mg/dl (1.7-2.5 ) Total 0.4 Bilirubin mg/dl (0.2-1.3 ) Direct 0.00 Bilirubin mg/dl (0.00-0. 20) Indirect 0.4 Bilirubin mg/dl (0-1.1) Aspartate Amino 15 Transf (AST/SGO IU/L (15-46) T) Alanine 19 Aminotransferas IU/L (13-69) e (ALT/SGPT) Alkaline 59 Phosphatase IU/L (42-121) Total Protein 5.8 g/dl (6.1-8.1) Albumin 3.0 g/dl (3.3-4.9) Globulin 2.80 g/dl (1.3-3.2) Albumin/Globuli 1.07 n Ratio Microbiology Date/Time Source Procedure Growth Status 04/04/18 20:06 Nasopharyngeal Influenza Types A,B Direct EIA - Final Complete NIESHA PEÑA Apr 05, 2018 09:24
[2018-04-05] MEDS ORDERED: INFLUENZA VIRUS VACCINE 0.5 ML (DISPENSING) IM* ONE (10:30)
[2018-04-05] MEDS ORDERED: LEVO500T48 PO (13:41)
[2018-04-05] MEDS ORDERED: LACT1CAP57 PO (13:41)
[2018-04-06] MEDS ORDERED: INFLUENZA VIRUS VACCINE 0.5 ML (DISPENSING) IM* ONE (10:00)
== END 2018-04-05 14:10 | disposition home or self-care (01) | DRG 872 ==
LOC: E/R 19:28 → 6WM 21:05
PROVIDERS: ADMIT Internal Medicine; ATTEND Internal Medicine
DX: A41.9 Sepsis, unspecified organism (principal); N10 Acute pyelonephritis; N39.0 Urinary tract infection, site not specified; B96.20 Unspecified Escherichia coli [E. coli] as the cause of diseases classified elsewhere; J45.909 Unspecified asthma, uncomplicated
CPT/HCPCS: 36415; 71045; 74176; 80053; 81001; 81025; 82150; 83605; 83690; 83735; 85025; 85610; 85730; 87040; 87086; 87400; 90686; 93005; 96365; 96375; J0692; J1885; J1956; J2270; J2405; J3370; J7030